=== PATIENT | male | born 1985 | race Caucasian/White ===

== ENCOUNTER → 2023-08-17 | Outpatient (CLI) | payer BC, SELFPAY ==
--- NOTE | 2023-08-17 12:18 | VDLE_ITS ---
Reason For Study: LE Pain RIGHT LEFT GSV is normal. CFV is compressible, spontaneous, phasic, CFV is compressible, spontaneous, phasic, competent, and demonstrates normal competent and demonstrates normal augmentation. augmentation. FV is compressible, spontaneous, phasic, FV is compressible, spontaneous, phasic, competent and demonstrates normal competent and demonstrates normal augmentation. augmentation. Acute deep vein thrombosis is noted in the POP V is compressible, spontaneous, phasic, POP V. It is dilated and NONCOMPRESSIBLE. competent and demonstrates normal Acute deep vein thrombosis is noted in the augmentation. Gastrocnemius V. It is dilated and T/P Trunk is compressible. NONCOMPRESSIBLE. PTV is compressible. PTV is compressible. RT PerV is compressible. LT PerV is compressible. Procedure Lt ASV / VV is dilated and NONCOMPRESSIBLE at This is a venous duplex using B-mode, color Mid Calf consistent with acute superficial flow and spectral Doppler. vein thrombosis. Exam performed in department. The exam was diagnostic. A preliminary report was called and/or faxed to Dr. Ho. VL/Venous Duplex US - Silvio Extrem Interpretation Summary Acute deep vein thrombosis is noted in the left popliteal vein. Acute deep vein thrombosis is noted in the left gastrocnemius vein. The remainder of the left lower extremity deep venous system is patent and compressible. Deep veins of the right lower extremity are patent and compressible segmentally. There is no evidence of right lower extremity deep vein thrombosis . Valvular competence appears intact within the proximal deep venous systems bilaterally. The great s aphenous veins appear bilaterally patent and compressible segmentally. Acute superficial thrombophleb itis is noted in the accessory saphenous vein and in superficial varicosities in the left mid-calf. Ordering Physician: Jerod Ho Referring Physician: Clifford Quispe Performed By: Josh Brumfield, KATHY
== END | disposition home or self-care (01) ==
LOC: CVS 12:17
PROVIDERS: PCP Family Medicine; Referring Provider Surgery; Visit Provider Surgery
DX: I80.02 Phlebitis and thrombophlebitis of superficial vessels of left lower extremity (principal); I87.2 Venous insufficiency (chronic) (peripheral); Z86.718 Personal history of other venous thrombosis and embolism
CPT/HCPCS: 93970

== ENCOUNTER → 2023-09-04 | Outpatient (CLI) | payer BC, SELFPAY ==
--- NOTE | 2023-09-04 10:38 | VDLE_ITS ---
Reason For Study: Pain in right calf RIGHT GSV is normal. CFV is compressible, spontaneous, phasic, competent and demonstrates normal augmentation. FV is compressible, spontaneous, phasic, competent and demonstrates normal augmentation. POP V is compressible, spontaneous, phasic, competent and demonstrates normal augmentation. T/P Trunk is compressible. PTV is compressible. RT PerV is compressible. Procedure This is a venous duplex using B-mode, color flow and spectral Doppler. Exam performed in department. A preliminary report was called and/or faxed to Dr. Ho. VL/Venous Duplex US, Unilateral Interpretation Summary Deep veins of the right lower extremity are patent and compressible segmentally . There is no evidence of right lower extremity deep vein thrombosis. Valvular competence karthik ears intact within the proximal deep venous system on the right . The right great saphenous vein a ppears patent and compressible segmentally. Ordering Physician: Jerod Ho Referring Physician: Clifford Quispe Performed By: Mady Moulton RVT
== END | disposition home or self-care (01) ==
LOC: CVS 10:37
PROVIDERS: PCP Family Medicine; Referring Provider Surgery; Visit Provider Surgery
DX: I83.11 Varicose veins of right lower extremity with inflammation (principal)
CPT/HCPCS: 93971